=== PATIENT | female | born 1960 | race African-American/Black ===

== ENCOUNTER 2018-01-03 16:59 | Emergency (ER) | payer SELFPAY ==
[~2018-01-03] VITALS: Ht 157.5 cm; Wt 99.7 kg
[2018-01-03 17:50] LABS: CHLORIDE 107 mEq/L (98-107)
[2018-01-03 17:51] LABS: BASOPHILS % 0.7 % (0.0-2.0); EOSINOPHILS % 1.8 % (0.0-5.0); HEMATOCRIT. 39.8 % (36.0-48.0); HEMOGLOBIN. 13.1 g/dL (12.0-16.0); LYMPHOCYTES % 29.2 % (20.0-50.0); MEAN CORPUSCULAR HEMOGLOBIN 27.9 pg (28.0-32.0); MEAN CORPUSCULAR VOLUME 84.8 fL (81.0-99.0); MEAN PLATELET VOLUME 7.9 fl (7.4-10.4); MONOCYTES % 7.3 % (2.0-8.0); PLATELET 227 x1000/uL (130-400); RED CELL DISTRIBUTION WIDTH 15.7 % (11.6-14.6)
[2018-01-03 17:52] LABS: PARTIAL THROMBOPLASTIN TIME 25.4 sec (23.4-31.0); PROTHROMBIN TIME 10.4 sec (9.4-11.6)
[2018-01-03] MEDS ORDERED: SODIUM CHLORIDE 0.9% 500 ML IV ONE (19:00)
[2018-01-03] MEDS ORDERED: ONDANSETRON HCL 4MG/2ML VIAL IV ONE (19:00)
[2018-01-03] MEDS ORDERED: KETOROLAC 15MG/ML VIAL IV ONE (19:00)
[2018-01-03 20:49] VITALS: BP 120/82
== END 2018-01-03 19:45 | disposition left against medical advice (07) ==
LOC: ER 18:00
DX: R07.89 Other chest pain (principal); R42 Dizziness and giddiness; R11.2 Nausea with vomiting, unspecified; R73.9 Hyperglycemia, unspecified; R79.9 Abnormal finding of blood chemistry, unspecified; E66.9 Obesity, unspecified; Z88.5 Allergy status to narcotic agent; Z96.653 Presence of artificial knee joint, bilateral; Z68.41 Body mass index [BMI] 40.0-44.9, adult
CPT/HCPCS: 36415; 71045; 80053; 83690; 84484; 85025; 85610; 85730; 93005; 96374; 96375; 99285; J1885; J2405; J7030; J7040; Z7610; 96361